=== PATIENT | female | born 1970 | race African-American/Black ===

== ENCOUNTER 2018-09-03 16:57 | Emergency (ER) | payer OTHER ==
[~2018-09-03] VITALS: Ht 170.2 cm; Wt 88.5 kg
[2018-09-03] MEDS ORDERED: NIFEDIPINE ER60 M1 PO (17:02)
[2018-09-03] MEDS ORDERED: GABAPENTIN 100100 MG PO (17:03)
[2018-09-03] MEDS ORDERED: NOLVADEX10 MG PO (17:03)
[2018-09-03] MEDS ORDERED: DOXYCYCLINE 10100 MG PO (17:03)
[2018-09-03 17:22] LABS: ABSOLUTE NEUTROPHILS 4.6 thou/uL (1.4-8.2); BASOPHILS 1.4 % (0.0-2.0); EOSINOPHILS 11.9 % (0.0-3.0); HEMATOCRIT 35.7 % (37.0-47.0); HEMOGLOBIN 12.2 gm/dL (12.0-15.0); LYMPHOCYTES 23.5 % (24.0-44.0); MCH 30.2 pg (26.0-34.0); MCHC 34.3 g/dL (28.0-37.0); MCV 88.1 fL (80.0-100.0); MONOCYTES 10.8 % (1.0-8.0); PLATELET COUNT 429 thou/uL (150-400); POLYS 52.4 % (36.0-66.0); RBC 4.05 mil/uL (4.20-5.00); RDW 14.1 % (10.5-14.5); WBC 8.8 thou/uL (4.0-11.0)
[2018-09-03 17:29] LABS: ANION GAP 9 mmol/L (7-16); BUN 18 mg/dL (7-18); CALCIUM 9.4 mg/dL (8.5-10.1); CHLORIDE 106 mmol/L (98-107); CO2 25 mmol/L (21-32); GLUCOSE 105 mg/dL (74-106); SODIUM 140 mmol/L (136-145)
[2018-09-03 17:37] LABS: ALBUMIN 3.7 g/dL (3.4-5.0); SGOT 14 U/L (15-37); SGPT 22 U/L (30-65); TOTAL BILIRUBIN 0.2 mg/dL (<0.1-1.0); TROPONIN-I <0.06 ng/mL (<0.06)
[2018-09-03 18:13] LABS: URINE BILIRUBIN NEGATIVE (Negative); URINE BLOOD NEGATIVE (Negative); URINE CLARITY CLEAR; URINE COLOR YELLOW; URINE GLUCOSE-RANDOM* NEGATIVE (Negative); URINE KETONES NEGATIVE (Negative); URINE LEUKOCYTES NEGATIVE (Negative); URINE NITRITE NEGATIVE (Negative); URINE PROTEIN (DIPSTICK) NEGATIVE (Negative); URINE SPECIFIC GRAVITY 1.015 (1.005-1.035); URINE UROBILINOGEN 0.2 E.U./dl (0.2-1.0)
[2018-09-03 20:22] VITALS: BP 114/74
--- NOTE | 2018-09-05 21:54 | EKG ---
[address] [address] ELECTROCARDIOGRAM REPORT Name: GUILLERMO CASTRO Room #: [facility] [id number] Admission: 09/03/18 Attend Phys: Discharge: 09/03/18 Date of : 66 Report #: [id number] THIS REPORT FOR: //name// [facility] ED Test Date: 2018-09-03 Test Time: 17:12:11 Pat Name: GUILLERMO BARR Department: Room: Gender: F [employer]: : 1970 Requested By: Caridad Sanchez Order Number: [id number] MD: Daniel Akhtar Measurements Intervals [place] Rate: 79 P: 42 DC: 159 QRS: 16 QRSD: 109 T: 12 QT: 410 QTc: 471 Interpretive Statements Sinus rhythm No previous ECG available for comparison Electronically Signed On 09-05-2018 21:54:44 [employer] by Daniel Akhtar [email or web address] <ELECTRONICALLY SIGNED> By: Daniel Akhtar MD 09/05/18 2154 171 171 Daniel Akhtar MD /EPI
== END 2018-09-03 20:28 | disposition home or self-care (01) ==
LOC: ER 16:57
PROVIDERS: Physician Assistant
DX: E86.0 Dehydration (principal); R55 Syncope and collapse; I10 Essential (primary) hypertension; Z85.3 Personal history of malignant neoplasm of breast; Z90.10 Acquired absence of unspecified breast and nipple